=== PATIENT | male | born 1975 | race African-American/Black ===

== ENCOUNTER 2019-11-29 23:14 | Emergency (ER) | payer OTHER, SELFPAY ==
--- NOTE | ~2019-11-29 | CT_ITS ---
EXAMINATION: CT brain wo con EXAM DATE: 11/30/2019 00:25 INDICATION: Fall, head injury. TECHNIQUE: Spiral CT of the head was performed without contrast. Axial, coronal and sagittal images were reviewed. The dose-length product (DLP) for this examination was 681.00 mGy-cm. The exposure w as tailored according to patient size, and iterative reconstruction (ASIR) was used as additional dos e reduction technique. There is no prior study for comparison. FINDINGS: There is no acute intraparenchymal hemorrhage. No evidence of intraparenchymal brain mass lesion. No evidence of acute infarction. There is no mass effect or midline shift. The ventricles are normal in size. There are no extra-axial collections. There are no acute calvarial fractures. T he orbits are unremarkable. Soft tissue is unremarkable. The visualized sinuses and mastoid air wally ls are well aerated. IMPRESSION: 1. No acute intracranial findings. Reviewed, dictated and finalized at location A.
[2019-11-29 23:22] VITALS: BP 110/83; PULSE 60; RESP 18; TEMP 36.1; O2SAT 100
[2019-11-30 00:23] LABS: Basophils Absolute Auto 0.1 K/mm3 (0.0-0.1); Basophils Percent Auto 0.8 % (0.2-1.2); Eosinophils Absolute Auto 0.1 K/mm3 (0-0.3); Eosinophils Percent Auto 2.1 % (0-4.4); Hematocrit 41.6 % (42.0-52.0); Hemoglobin 13.4 g/dL (14.0-18.0); Immature Granulocyte Absolute 0.02 K/mm3 (0.00-0.031); Immature Granulocyte Percent A 0.3 % (0-0.5); Lymphocytes Absolute Auto 3.19 K/mm3 (0.9-3.2); Mean Corpuscular HGB Conc 32.2 g/dl (32-36); Mean Corpuscular Hemoglobin 26.7 pg (26-34); Mean Platelet Volume 9.3 fl (7.4-10.4); Monocytes Absolute Auto 0.4 K/mm3 (0.1-0.6); Monocytes Percent Auto 6.6 % (2.6-8.5); Neutrophils Absolute Auto 2.8 K/mm3 (1.3-6.7); Neutrophils Percent Auto 42.2 % (45.5-73.1); Platelet Count Result 240 k/mm3 (150-375); Red Blood Count 5.01 M/mm3 (4.6-6.20); Red Cell Distribution Width 13.4 % (11.5-14.5); White Blood Count 6.6 K/mm3 (4.5-10.0)
[2019-11-30] MEDS: SODIUM CHLORIDE 0.9% IV 1,000 ML 999 ML IV CONT (00:32)
[2019-11-30 00:33] VITALS: BP 135/99; BP 145/108; PULSE 57; PULSE 61
[2019-11-30 00:34] VITALS: BP 149/107; PULSE 71
[2019-11-30 00:41] LABS: Anion Gap 7 mmol/L (8-16); Blood Urea Nitrogen 15 mg/dL (9-20); Calcium 8.6 mg/dL (8.4-10.2); Carbon Dioxide 28 mmol/L (22-30); Chloride 102 mmol/L (98-107); Estimated CRCL calculation 91 ml/min; Estimated Glomerular Filt Rate > 60; Glucose 113 mg/dL (75-110); Potassium 3.6 mmol/L (3.4-5.0); Sodium 137 mmol/L (137-145)
[2019-11-30 01:04] LABS: Creatine Kinase 156 U/L (55-170)
[2019-11-30 01:20] VITALS: BP 137/94; PULSE 67; RESP 19; O2SAT 100
--- NOTE | 2019-11-30 01:40 | ED.GENADULT ---
HPI - General Adult General Chief complaint: Fall Stated complaint: Fall Time Seen by Provider: 11/29/19 23:54 History of Present Illness HPI narrative: Patient is a 44-year-old male who presents ER after losing consciousness and striking his head on the ground. Patient had left a wake and was outside around a bunch of cigar smoke. He then felt warm and lightheaded and passed out. He had no chest pain or racing the heart. He is without nausea/vomiting. He only had brief loss of consciousness. He has abrasions to his left forehead, the bridge of his nose, and under his left nose. Has not had similar symptoms previously. Patient reports being in otherwise good health. No alcohol today. Tetanus UTD. Related Data Allergies Allergy/AdvReac Type Severity Reaction Status Date / Time No Known Allergies Allergy Verified 11/30/19 01:44 Review of Systems Review of Systems: All systems reviewed & are unremarkable except as noted in HPI and below Constitutional: Constitutional: Denies chills, Denies fever(s) and Denies weakness ENT: Denies nasal congestion and Denies sore throat Cardiovascular: Cardiovascular: Denies chest pain, Denies rapid heart rate and Denies radiating jaw, neck or arm pain Respiratory: Respiratory: Denies cough and Denies dyspnea Neurologic: Reports syncope, Denies headache(s), Denies focal weakness and Denies numbness PMFSH Past Medical History Medical History (Updated 11/30/19 @ 01:45 by Tae Hamilton MD) Healthy adult male Surgical History Surgical History (Updated 11/30/19 @ 01:41 by Tae Hamilton MD) No pertinent past surgical history Exam Narrative: Exam Narrative: GENERAL: Well-appearing, well-nourished, and in no acute distress. HEAD: Normocephalic, atraumatic. Abrasion left forehead ENT: Mucous membranes moist. Abrasion of the upper lip beneath the nose on the left side with a small chunk of skin missing not amenable to repair. CHEST: Clear to auscultation. No respiratory distress. HEART: Regular rate and rhythm. Normal peripheral pulses. EXTREMITIES: Normal range of motion. No edema. NEURO: No focal deficits. Alert and oriented x3. PSYCH: Normal mood and affect. Course Course Emergency Course: Hydrated. Labs unremarkable. CT negative. Patient is not orthostatic. Discharge home. Vital Signs Vital signs: Vital Signs Temperature 97 F L 11/29/19 23:22 Pulse Rate 60 11/29/19 23:22 Respiratory Rate 18 11/29/19 23:22 Blood Pressure 110/83 11/29/19 23:22 Pulse Oximetry 100 11/29/19 23:22 Temperature 97 F L 11/29/19 23:22 Pulse Rate 67 11/30/19 01:20 Respiratory Rate 19 11/30/19 01:20 Blood Pressure 137/94 H 11/30/19 01:20 Pulse Oximetry 100 11/30/19 01:20 Medical Decision Making Vital Signs Vital Signs: Vital Signs Temperature 97 F L 11/29/19 23:22 Pulse Rate 60 11/29/19 23:22 Respiratory Rate 18 11/29/19 23:22 Blood Pressure 110/83 11/29/19 23:22 Pulse Oximetry 100 11/29/19 23:22 Temperature 97 F L 11/29/19 23:22 Pulse Rate 67 11/30/19 01:20 Respiratory Rate 19 11/30/19 01:20 Blood Pressure 137/94 H 11/30/19 01:20 Pulse Oximetry 100 11/30/19 01:20 Lab Data Result diagrams: 11/30/19 00:16 11/30/19 00:16 Labs: Lab Results 11/30/19 11/30/19 11/30/19 Range/Units 00:16 00:16 00:16 WBC 6.6 (4.5-10.0) K/mm3 RBC 5.01 (4.6-6.20) M/mm3 Hgb 13.4 L (14.0-18.0) g/dL Hct 41.6 L (42.0-52.0) % MCV 83.0 (80-100) fl MCH 26.7 (26-34) pg MCHC 32.2 (32-36) g/dl RDW 13.4 (11.5-14.5) % Plt Count 240 (150-375) k/mm3 MPV 9.3 (7.4-10.4) fl Immature Gran % (Auto) 0.3 (0-0.5) % Neut % (Auto) 42.2 L (45.5-73.1) % Lymph % (Auto) 48.0 H (18.3-44.2) % Wheeler % (Auto) 6.6 (2.6-8.5) % Eos % (Auto) 2.1 (0-4.4) % Baso % (Auto) 0.8 (0.2-1.2) % Lymph # (Auto) 3.19 (0.9-3.2) K/mm3 Wheeler # (Auto)
[2019-11-30 01:52] VITALS: BP 154/97; PULSE 65; RESP 19; TEMP 36.1; O2SAT 100
[2019-11-30] MEDS: ACETAMINOPHEN 500 MG TABLET 1000 MG PO (01:52)
== END 2019-11-30 01:54 | disposition home or self-care (01) ==
PROVIDERS: Emergency Provider Emergency Medicine
DX: R55 Syncope and collapse (principal); S00.81XA Abrasion of other part of head, initial encounter; W18.30XA Fall on same level, unspecified, initial encounter
CPT/HCPCS: 36415; 70450; 80048; 82550; 85025; 96360; 99284; A9270; J7030